=== PATIENT | male | born 1970 | race Caucasian/White ===

== ENCOUNTER 2021-04-28 10:54 | Emergency (ER) | payer OTHER, SELFPAY ==
[2021-04-28 11:14] VITALS: BP 150/88; PULSE 82; RESP 18; TEMP 36.7; O2SAT 99; BMI 27.1
--- NOTE | 2021-04-28 11:28 | W.ED.LOWEXIN ---
HPI - Extremity Injury (Lower) General: Chief Complaint: Abdominal Pain Stated Complaint: GROIN PAIN, POST HERNIA SURGERY Time Seen by Provider: 04/28/21 10:56 History of Present Illness: HPI Narrative: Patient is a 51-year-old male comes to the ED with right groin area pain. Patient was brought to the ED in handcuffs by [facility] law enforcement official. Patient says he had hernia surgery back on February 06. His surgery went well and post surgery healing has gone well to. Today he was getting into a police vehicle and he bent over and extended his leg laterally to get in and felt the sharp and burning pain in his right groin region near his hernia surgery site. Denies any bulging mass in groin. Pain runs down right groin and he rates it currently a 5 out of 10. Says any movement with his right leg causes worsening symptoms. Denies any pain or swelling in the scrotum or hematuria or dysuria. Review of Systems Const: Denies: fever(s), chills or fatigue Eyes: Denies: change in vision or eye discomfort ENMT: Denies: throat pain, odynophagia, nasal discharge or nasal congestion Card: Denies: chest pain, palpitations, edema, swelling of feet/ankles, dyspnea on exertion or orthopnea Resp: Denies: dyspnea, productive cough or non-productive cough GI: Denies: abdominal pain, nausea, vomiting, diarrhea, constipation or hematochezia : Denies: flank pain, difficulty urinating, dysuria or hematuria Musc: Reports: extremity pain (right groin pain); Denies: neck pain, back pain or extremity swelling Skin/Breast: Denies: rash or new lesions Neuro: Denies: headache(s), numbness in extremities or weakness in extremities Physical Exam Const: COMMON NORMALS: no acute distress, patient oriented x3, healthy appearing and alert GENERAL APPEARANCE: cooperative and comfortable HENMT: COMMON NORMALS: normocephalic HEAD & SCALP: normocephalic MOUTH: Normal oral and palatal mucosa present THROAT: posterior oropharynx normal and uvula midline Neck/C-Spine: COMMON NORMALS: supple GENERAL: Yes normal visual inspection Resp: COMMON NORMALS: normal respiratory effort, No retractions, No use of accessory muscles and clear to auscultation bilaterally AUSCULTATION: clear to auscultation bilaterally Cardio: COMMON NORMALS: regular rate, regular rhythm, S1 normal heart sound present, S2 normal heart sound present, No gallops present (Cardio), No clicks present (Cardio), No murmurs present (Cardio) and Peripheral pulses 2+ throughout RATE: regular rate RHYTHM: regular rhythm HEART SOUNDS: S1 normal heart sound present and S2 normal heart sound present PERIPHERAL PULSES: Peripheral pulses 2+ throughout GI: COMMON NORMALS: Normal to inspection, nondistended, normoactive bowel sounds present, Soft to palpation, non-tender and no masses PALPATION: Yes Soft to palpation : COMMON NORMALS: Yes no CVA tenderness BLADDER/KIDNEY EXAM: Yes no CVA tenderness Back/Pelvis: COMMON NORMALS: no CVA tenderness Extremity: RIGHT LOWER EXTREMITY: Yes upper leg Right upper leg: Yes inspection (No visible swelling noted. Hernia scar in right groin-normal appearance), Yes palpation (Muscular tenderness in groin region.), Yes neurovascular exam (Intact) and Yes other (Pain in right groin when ambulating) Neuro: COMMON NORMALS: patient oriented x3 and moves all extremities SENSORIUM/ORIENTATION: Yes alert Skin: GENERAL SKIN EXAM: dry skin Course Vital Signs: Vital signs: Vital Signs Temperature 98.0 F 04/28/21 11:14 Pulse Rate 82 04/28/21 11:14 Respiratory Rate 18 04/28/21 11:14 Blood Pressure 150/88 04/28/21 11:14 Pulse Oximetry 99 04/28/21 11:14 MDM - Extremity Injury (Lower) MDM Narrative: Medical decision making narrative: Patient is a 51-year-old male who comes to the ED with right groin pain. Patient is here today in handcuffs and escorted by a [facility] torts law professor. Patient was getting into back of police vehicle when he felt a pull in his right groin area. He now has pain in his right groin region with any ambulation or movement of the right lower extremity. Patient's clinical findings are suggestive of a strain muscle in the groin. He denies any other symptoms. Patient diagnosed with strain of right inguinal muscle and discharged home with Celebrex and some cyclobenzaprine. Follow-up with PCP in 7 to 10 days reevaluation. Return to ED precautions given. Patient understood agree with plan. Discharge Plan Discharge Patient Disposition: Home Clinical Impression: Strain of right inguinal muscle Qualifiers: Encounter type: initial encounter Qualified Code(s): S39.013A - Strain of muscle, fascia and tendon of pelvis, initial encounter Condition: Stable Prescriptions: New Celebrex 100 mg capsule 100 mg PO BID PRN (Reason: pain) Qty: 20 RF: 0 cyclobenzaprine 10 mg tablet 10 mg PO BID PRN (Reason: muscle spasm) Qty: 20 RF: 0 Discharge Orders: Discharge ED (Routine); Ordered 04/28/21 Ordered By: Fercho Sorto Discharge Diet: Regular Discharge Activity: Increase activity as tolerated Patient Instructions: Groin Strain (ED) Activity Restrictions/Additional Instructions: Follow-up with medical provider as directed in 5 to 7 days reevaluation. Apply cold pack on sore area to help with symptoms. Limit activity for the next couple days and rest to allow for healing. Take medications as prescribed. Return to the ER or your medical provider if condition worsens. Please read and understand discharge instructions. Thank you for choosing [facility] for your healthcare needs today. Please realize this is an emergency room and that we are providing you with a medical screening exam and this may not be complete and all inclusive of all the testing and or work up that you may need to determine your ailment or severity of your illness. It is very important that you follow up as instructed or that you return to the Emergency Department should you have concerns or if your condition changes or worsens in any way. Stand Alone Forms: Work/School Release Coding Level of Care Code ED [employer] Exam Comprehensive
== END 2021-04-28 11:49 | disposition home or self-care (01) ==
PROVIDERS: Emergency Provider Physician Assistant
DX: S39.013A Strain of muscle, fascia and tendon of pelvis, initial encounter (principal); X50.1XXA Overexertion from prolonged static or awkward postures, initial encounter
CPT/HCPCS: 99281